=== PATIENT | female | born 1960 | race Caucasian/White ===

== ENCOUNTER 2017-08-28 06:18 | Inpatient (IN) | payer OTHER ==
[2017-08-28] MEDS ORDERED: METOCLOPRAMIDE 10 MG INJ (08:23)
[2017-08-28] MEDS ORDERED: morphine SULFATE/PF (10 MG/10 ML) INJ (08:23)
[2017-08-28] MEDS ORDERED: MIDAZOLAM 1 MG/ML 2 ML INJ (08:23)
[2017-08-28] MEDS ORDERED: ACETAMINOPHEN 1000MG/100ML IV 100 ML (08:25)
[2017-08-28] MEDS ORDERED: ROPIVACAINE 0.2% 20 ML VIAL (08:25)
[2017-08-28] MEDS ORDERED: ONDANSETRON 4 MG INJ (08:25)
[2017-08-28] MEDS ORDERED: KETOROLAC 30 MG INJ (08:25)
[2017-08-28] MEDS ORDERED: CEFAZOLIN 1 GM INJ (08:25)
[2017-08-28] MEDS ORDERED: EPHEDrine SULFATE 50 MG/5 ML SYG (09:13)
[2017-08-28] MEDS ORDERED: FENTAnyl 50 MCG/ML VIAL (09:15)
[2017-08-28] MEDS: POLYMYXIN/BACITRACIN 1L IRRIG (09:38)
[2017-08-28] MEDS: POLYMYXIN B 500000 UNIT INJ (09:39)
[2017-08-28] MEDS: TRANEXAMIC ACID IRR (09:39)
[2017-08-28] MEDS: SODIUM CHLORIDE 0.9% IRR (09:39)
[2017-08-28] MEDS ORDERED: BACITRACIN 50000 UNITS INJ (09:41)
[2017-08-28] MEDS ORDERED: DIPHENHYDRAMINE 50 MG INJ IV (10:00)
[2017-08-28] MEDS ORDERED: HYDROmorphONE (0.2 MG/ML) 10ML SYG IV ×3 (10:00)
[2017-08-28] MEDS ORDERED: hydrALAzine 20 MG INJ IV (10:00)
[2017-08-28] MEDS ORDERED: LABETALOL HCL 20MG INJ IV (10:00)
[2017-08-28] MEDS ORDERED: MEPERIDINE 25 MG INJ IV (10:00)
[2017-08-28] MEDS ORDERED: ONDANSETRON 4 MG INJ IV (10:00)
[2017-08-28] MEDS ORDERED: PROPOFOL 100 ML (11:09)
[2017-08-28] MEDS ORDERED: PROPOFOL 20 ML (11:09)
[2017-08-28] MEDS ORDERED: NALOXONE (0.4 MG/ML) INJ IV (12:00)
[2017-08-28] MEDS ORDERED: oxyCODONE 5 MG TAB PO (12:00)
[2017-08-28] MEDS: ONDANSETRON 4 MG INJ IV ×3 (12:56→23:27)
[2017-08-28] MEDS: DOCUSATE SODIUM 100 MG CAP PO (12:57)
[2017-08-28] MEDS: CEFAZOLIN 1 GM/50 ML (PMX) 50 ML IVPB ×2 (13:53→21:19)
[2017-08-28] MEDS: DIPHENHYDRAMINE 50 MG CAP PO ×2 (15:03→21:19)
[2017-08-28] MEDS: oxyCODONE 5 MG TAB PO (23:27)
[2017-08-29] MEDS: oxyCODONE 5 MG TAB PO ×4 (04:11→23:39)
[2017-08-29] MEDS: morphine 2 MG INJ IV ×5 (04:56→19:46)
[2017-08-29 05:35] LABS: ADD MAN DIFF? NO
[2017-08-29] MEDS: CEFAZOLIN 1 GM/50 ML (PMX) 50 ML IVPB (05:35)
[2017-08-29] MEDS: ONDANSETRON 4 MG INJ IV (05:35)
[2017-08-29 05:50] LABS: BASOPHILS % 0.2 % (0.0-2.0); EOSINOPHILS % 0.2 % (0.0-7.0); HEMATOCRIT 36.8 % (37.0-47.0); HEMOGLOBIN 12.6 g/dl (12.0-16.0); LYMPHOCYTES # 2.1 10^3/ul (0.8-2.9); LYMPHOCYTES % 16.8 % (15.0-51.0); MEAN CORPUSCULAR HEMOGLOBIN 29.5 pg (29.0-33.0); MEAN CORPUSCULAR HGB CONC 34.2 g/dl (32.0-37.0); MEAN CORPUSCULAR VOLUME 86.2 fl (82.0-101.0); MEAN PLATELET VOLUME 12.2 fl (7.4-10.4); MONOCYTE # 0.9 10^3/ul (0.3-0.9); NEUTROPHIL # 9.5 10^3/ul (1.6-7.5); NEUTROPHILS % 75.6 % (39.0-77.0); PLATELET COUNT 188 10^3/UL (140-415); RED BLOOD COUNT 4.27 10^6/ul (4.20-5.40); RED CELL DISTRIBUTION WIDTH 13.1 % (11.5-14.5)
[2017-08-29 05:50] LABS: WHITE BLOOD COUNT 12.5 10^3/ul (4.8-10.8)
[2017-08-29 06:16] LABS: ANION GAP 14 (8-16); BLOOD UREA NITROGEN 11 mg/dl (7-20); CALCIUM 8.4 mg/dl (8.4-10.2); CARBON DIOXIDE 24 mmol/L (21-31); CHLORIDE 102 mmol/L (97-110); CREATININE 0.78 mg/dl (0.44-1.00); GLUCOSE 132 mg/dl (70-220); SODIUM 136 mmol/L (135-144)
[2017-08-29] MEDS: SODIUM CHLORIDE 0.9% IRR (07:30)
[2017-08-29] MEDS: TRANEXAMIC ACID IRR (07:30)
[2017-08-29] MEDS: DOCUSATE SODIUM 100 MG CAP PO ×2 (08:19→21:11)
[2017-08-29] MEDS: LOSARTAN 50 MG TAB PO (08:20)
[2017-08-29] MEDS: APIXABAN 5 MG TABLET PO ×2 (08:21→21:11)
[2017-08-29] MEDS ORDERED: NON-FORMULARY/PATIENT OWN MED (Omeprazole* 20 MG) PO (09:00)
[2017-08-30] MEDS: oxyCODONE 5 MG TAB PO ×6 (04:41→23:53)
[2017-08-30] MEDS: morphine 2 MG INJ IV (05:54)
[2017-08-30] MEDS: PANTOPRAZOLE (EC) 40 MG TAB PO (05:54)
[2017-08-30 06:17] LABS: ADD MAN DIFF? NO
[2017-08-30 06:31] LABS: BASOPHILS % 0.2 % (0.0-2.0); EOSINOPHILS % 0.3 % (0.0-7.0); HEMATOCRIT 36.2 % (37.0-47.0); HEMOGLOBIN 12.5 g/dl (12.0-16.0); LYMPHOCYTES # 2.4 10^3/ul (0.8-2.9); LYMPHOCYTES % 19.1 % (15.0-51.0); MEAN CORPUSCULAR HEMOGLOBIN 29.8 pg (29.0-33.0); MEAN CORPUSCULAR HGB CONC 34.5 g/dl (32.0-37.0); MEAN CORPUSCULAR VOLUME 86.2 fl (82.0-101.0); MEAN PLATELET VOLUME 12.3 fl (7.4-10.4); MONOCYTE # 1.1 10^3/ul (0.3-0.9); MONOCYTES % 8.7 % (0.0-11.0); NEUTROPHIL # 9.1 10^3/ul (1.6-7.5); NEUTROPHILS % 71.4 % (39.0-77.0); NUCLEATED RED BLOOD CELLS% 0.3 /100WBC (0.0-0.0); PLATELET COUNT 162 10^3/UL (140-415)
[2017-08-30 06:31] LABS: WHITE BLOOD COUNT 12.8 10^3/ul (4.8-10.8)
[2017-08-30 07:48] LABS: ANION GAP 14 (8-16); BLOOD UREA NITROGEN 8 mg/dl (7-20); CALCIUM 8.6 mg/dl (8.4-10.2); CARBON DIOXIDE 23 mmol/L (21-31); CHLORIDE 96 mmol/L (97-110); CREATININE 0.67 mg/dl (0.44-1.00); GLUCOSE 134 mg/dl (70-220); POTASSIUM 4.1 mmol/L (3.5-5.1); SODIUM 129 mmol/L (135-144)
[2017-08-30] MEDS: APIXABAN 5 MG TABLET PO ×2 (09:46→20:44)
[2017-08-30] MEDS: DOCUSATE SODIUM 100 MG CAP PO ×2 (09:46→20:44)
[2017-08-30] MEDS: LOSARTAN 50 MG TAB PO (09:47)
[2017-08-31] MEDS: PANTOPRAZOLE (EC) 40 MG TAB PO (05:05)
[2017-08-31] MEDS: MAGNESIUM HYDROXIDE 30ML CUP PO ×2 (05:05→18:28)
[2017-08-31 05:19] LABS: ADD MAN DIFF? NO
[2017-08-31] MEDS: oxyCODONE 5 MG TAB PO ×3 (05:23→16:27)
[2017-08-31 05:25] LABS: BASOPHILS % 0.4 % (0.0-2.0); EOSINOPHILS # 0.1 10^3/ul (0.0-0.5); EOSINOPHILS % 0.7 % (0.0-7.0); HEMATOCRIT 34.9 % (37.0-47.0); LYMPHOCYTES # 2.5 10^3/ul (0.8-2.9); LYMPHOCYTES % 23.8 % (15.0-51.0); MEAN CORPUSCULAR HEMOGLOBIN 29.9 pg (29.0-33.0); MEAN CORPUSCULAR HGB CONC 34.4 g/dl (32.0-37.0); MEAN CORPUSCULAR VOLUME 86.8 fl (82.0-101.0); MEAN PLATELET VOLUME 11.5 fl (7.4-10.4); MONOCYTE # 1.1 10^3/ul (0.3-0.9); NEUTROPHIL # 6.9 10^3/ul (1.6-7.5); NEUTROPHILS % 64.7 % (39.0-77.0); PLATELET COUNT 167 10^3/UL (140-415); RED BLOOD COUNT 4.02 10^6/ul (4.20-5.40); RED CELL DISTRIBUTION WIDTH 12.7 % (11.5-14.5)
[2017-08-31 05:25] LABS: WHITE BLOOD COUNT 10.7 10^3/ul (4.8-10.8)
[2017-08-31 05:46] LABS: ANION GAP 14 (8-16); BLOOD UREA NITROGEN 10 mg/dl (7-20); CALCIUM 8.5 mg/dl (8.4-10.2); CARBON DIOXIDE 25 mmol/L (21-31); CHLORIDE 96 mmol/L (97-110); CREATININE 0.76 mg/dl (0.44-1.00); GLUCOSE 116 mg/dl (70-220); POTASSIUM 4.1 mmol/L (3.5-5.1); SODIUM 131 mmol/L (135-144)
[2017-08-31] MEDS: LOSARTAN 50 MG TAB PO (09:07)
[2017-08-31] MEDS: DOCUSATE SODIUM 100 MG CAP PO ×2 (09:08→21:59)
[2017-08-31] MEDS: APIXABAN 5 MG TABLET PO ×2 (09:08→21:59)
[2017-08-31] MEDS: DIPHENHYDRAMINE 50 MG CAP PO (10:34)
[2017-09-01 05:12] LABS: ADD MAN DIFF? NO
[2017-09-01] MEDS: PANTOPRAZOLE (EC) 40 MG TAB PO (05:21)
[2017-09-01 06:07] LABS: BLOOD UREA NITROGEN 24 mg/dl (7-20); CALCIUM 8.5 mg/dl (8.4-10.2); CARBON DIOXIDE 25 mmol/L (21-31); GLUCOSE 116 mg/dl (70-220); POTASSIUM 4.4 mmol/L (3.5-5.1); SODIUM 131 mmol/L (135-144)
[2017-09-01 06:26] LABS: WHITE BLOOD COUNT 10.5 10^3/ul (4.8-10.8)
[2017-09-01 06:26] LABS: BASOPHILS % 0.3 % (0.0-2.0); EOSINOPHILS # 0.1 10^3/ul (0.0-0.5); EOSINOPHILS % 0.8 % (0.0-7.0); HEMATOCRIT 35.3 % (37.0-47.0); LYMPHOCYTES # 2.7 10^3/ul (0.8-2.9); LYMPHOCYTES % 25.3 % (15.0-51.0); MEAN CORPUSCULAR HEMOGLOBIN 29.5 pg (29.0-33.0); MEAN CORPUSCULAR VOLUME 86.7 fl (82.0-101.0); MONOCYTE # 1.4 10^3/ul (0.3-0.9); MONOCYTES % 13.4 % (0.0-11.0); NEUTROPHIL # 6.3 10^3/ul (1.6-7.5); NEUTROPHILS % 59.7 % (39.0-77.0); RED BLOOD COUNT 4.07 10^6/ul (4.20-5.40); RED CELL DISTRIBUTION WIDTH 12.7 % (11.5-14.5)
[2017-09-01 06:35] LABS: PLATELET COUNT 203 10^3/UL (140-415); POSITIVE DIFF @See below
[2017-09-01 07:52] LABS: ANION GAP 7 (8-16)
[2017-09-01 07:53] LABS: CHLORIDE 103 mmol/L (97-110)
[2017-09-01] MEDS: APIXABAN 5 MG TABLET PO (08:40)
[2017-09-01] MEDS: LOSARTAN 50 MG TAB PO (09:00)
[2017-09-01] MEDS: oxyCODONE 5 MG TAB PO ×2 (09:32→18:55)
[2017-09-01] MEDS: BISACODYL 10 MG SUPP PR (16:00)
== END 2017-09-01 20:30 | DRG 470 ==
LOC: REC 06:18 → MS1 13:28
PROC: 0SRD0J9 Replacement of Left Knee Joint with Synthetic Substitute, Cemented, Open Approach (ICD-10-PCS; principal; 2017-08-28 08:00)
DX: M17.12 Unilateral primary osteoarthritis, left knee (principal); I10 Essential (primary) hypertension; E78.5 Hyperlipidemia, unspecified; K29.70 Gastritis, unspecified, without bleeding; G89.18 Other acute postprocedural pain; L29.9 Pruritus, unspecified
CPT/HCPCS: 73560; 80048; 85025; 86850; 86900; 86901; 87086; 88304; 88311; 93971; 97110; 97116; 97162; 97530